=== PATIENT | female | born 1950 | race Hispanic/Latino ===

== ENCOUNTER 2020-05-23 11:00 | Outpatient (RCR) | payer MEDICARE ==
[~2020-05-23 11:00] MED LIST: ASPIRIN81 MG PO; ATORVASTATIN CA40 MG PO; DEXILANT60 MG PO; GLIMEPIRIDE4 MG PO; LEVOTHYROXINE100 MCG PO; LOSARTAN POTAS100 MG PO; METFORMIN HCL500 MG PO
== END 2020-05-24 ==
LOC: PT 11:00
PROVIDERS: ATTEND Specialist
DX: S46.092A Other injury of muscle(s) and tendon(s) of the rotator cuff of left shoulder, initial encounter (principal); M62.81 Muscle weakness (generalized); M25.512 Pain in left shoulder; M25.612 Stiffness of left shoulder, not elsewhere classified

== ENCOUNTER 2020-06-01 10:51 | Outpatient (RCR) | payer MEDICARE | END 2020-06-24 | LOC: PT 10:51 | PROVIDERS: ATTEND Specialist | DX: S46.902A Unspecified injury of unspecified muscle, fascia and tendon at shoulder and upper arm level, left arm, initial encounter (principal); M25.512 Pain in left shoulder; M62.81 Muscle weakness (generalized); M25.612 Stiffness of left shoulder, not elsewhere classified | CPT/HCPCS: 97139 ==

== ENCOUNTER 2022-10-23 12:32 | Outpatient (RCR) | payer MEDICARE | END 2022-10-24 | LOC: PT 12:32 | PROVIDERS: ATTEND Physician Assistant | DX: M75.81 Other shoulder lesions, right shoulder (principal) ==

== ENCOUNTER 2022-11-27 07:15 | Outpatient (RCR) | payer MEDICARE | END 2022-12-25 | LOC: PT 07:15 | PROVIDERS: ATTEND Physician Assistant | DX: M75.81 Other shoulder lesions, right shoulder (principal) ==

== ENCOUNTER → 2023-05-06 | Outpatient (CLI) | payer MEDICARE, OTHER | LOC: MRI 09:37 | PROVIDERS: ATTEND Physician Assistant | DX: M25.511 Pain in right shoulder (principal); M75.81 Other shoulder lesions, right shoulder ==

== ENCOUNTER 2023-09-23 10:00 | Outpatient (RCR) | payer MEDICARE, OTHER ==
[~2023-09-23 10:00] MED LIST changes: +CALCIUM CARBON500 MG PO; +CARDIZEM CD180 MG PO; +CARDURA2 MG PO; +HYDROCHLOROTHIA25 MG PO; +JANUVIA100 MG PO; +METFORMIN HCL850 MG PO; +MULTI-VITAMIN1 EACH PO
== END 2023-09-24 ==
LOC: PT 10:00
PROVIDERS: ATTEND Physician Assistant
DX: Z47.89 Encounter for other orthopedic aftercare (principal); M75.121 Complete rotator cuff tear or rupture of right shoulder, not specified as traumatic

== ENCOUNTER 2023-10-23 09:52 | Outpatient (RCR) | payer MEDICARE, OTHER | END 2023-10-24 | LOC: PT 09:52 | PROVIDERS: ATTEND Physician Assistant | DX: Z47.89 Encounter for other orthopedic aftercare (principal); M75.121 Complete rotator cuff tear or rupture of right shoulder, not specified as traumatic ==